=== PATIENT | female | born 1935 | race African-American/Black ===

== ENCOUNTER 2024-07-09 15:27 | Emergency (ER) | payer BC, MEDICARE ==
[~2024-07-09] VITALS: Ht 165.1 cm; Wt 54.0 kg
[~2024-07-09 15:27] MED LIST: ambien PO; azor PO; bystolic PO; levothyroxine PO; torsemide PO
[2024-07-09 15:36] VITALS: BP 160/64; TEMP 36.8; O2SAT 98
[2024-07-09 15:37] VITALS: PULSE 104; RESP 16; O2SAT 99
== END 2024-07-09 19:24 | disposition left against medical advice (07) ==
LOC: ER 15:27
DX: R51.9 Headache, unspecified (principal); Z53.21 Procedure and treatment not carried out due to patient leaving prior to being seen by health care provider